=== PATIENT | female | born 1945 | race Asian ===

== ENCOUNTER → 2017-05-02 15:11 | Outpatient (CLI) | payer BC ==
[2017-05-02 15:32] LABS: BASOPHILS 0.4 % (0-2); EOSINOPHILS 3.8 % (0-7); HEMATOCRIT 35.4 % (36.0-48.0); MCH 21.3 pg (26.0-34.0); MCHC 31.1 g/dL (31.0-37.0); MCV 68.6 fL (80.0-100.0); MEAN PLATELET VOLUME 11.2 fL (7.4-10.4); MONOCYTES 7.3 % (2-11); NEUTROPHILS 57.5 % (40-80); PLATELET COUNT 205 10x3/uL (130-400); RBC 5.16 10x6/uL (4.00-5.40); RDW 14.4 % (11.5-14.5); WBC 4.8 10x3/uL (4.8-10.8)
[2017-05-02 15:35] LABS: APPEARANCE CLEAR (CLEAR); BILIRUBIN NEGATIVE (NEGATIVE); COLOR STRAW (YELLOW); GLUCOSE NEGATIVE (NEGATIVE); KETONE NEGATIVE (NEGATIVE); LEUKOCYTE ESTERASE NEGATIVE (NEGATIVE); NITRITE NEGATIVE (NEGATIVE); PROTEIN NEGATIVE (NEGATIVE); SPECIFIC GRAVITY 1.005 (1.005-1.020); UROBILINOGEN NORMAL (NORMAL)
[2017-05-02 16:02] LABS: ALBUMIN 3.7 g/dL (3.4-5.0); ALKALINE PHOSPHATASE 67 U/L (46-116); ALT (SGPT) 21 U/L (10-68); BILIRUBIN - TOTAL 0.33 mg/dL (0.2-1.3); CALC OSMOLALITY 269 mosm/kg (275-300); CALCIUM 8.6 mg/dL (8.5-10.1); CARBON DIOXIDE 29.5 mmol/L (21.0-32.0); CHLORIDE - SERUM 100 mmol/L (98-107); CHOL - HDL RATIO 3.7 ratio (2.3-4.1); CHOLESTEROL, TOTAL 155 mg/dL (0-200); CREATININE - SERUM 0.6 mg/dL (0.6-1.3); GLUCOSE 91 mg/dL (74-106); HDL CHOLESTEROL 42 mg/dL (32-96); LDL CHOLESTEROL 94 mg/dL (0-100); LDL-HDL RATIO 2.2 ratio (1.5-3.5); PROTEIN - SERUM 7.2 g/dL (6.4-8.2); SODIUM 136 mmol/L (136-145); THYROID STIMULATING HORMONE 2.92 uIU/mL (0.36-3.74); TRIGLYCERIDE 98 mg/dL (30-200); UREA NITROGEN 7 mg/dL (7-18); eGFR NON AFRICAN AMERICAN > 90 mL/min (90-120)
[2017-05-02 16:19] LABS: HEMOGLOBIN A1C 6.8 % (4.8-6.0)
== END | disposition home or self-care (01) ==
LOC: D.LABREF 15:11
PROVIDERS: Family Medicine
DX: Z00.00 Encounter for general adult medical examination without abnormal findings (principal); E11.9 Type 2 diabetes mellitus without complications

== ENCOUNTER → 2018-04-11 11:33 | Outpatient (CLI) | payer MEDICARE, BC ==
[2018-04-11 12:25] LABS: BASOPHILS 0.7 % (0-2); EOSINOPHILS 2.2 % (0-7); HEMATOCRIT 36.7 % (36.0-48.0); HEMOGLOBIN 11.7 g/dL (12-16); LYMPHOCYTES 28.2 % (15-50); MCH 21.1 pg (26.0-34.0); MCHC 31.9 g/dL (31.0-37.0); MCV 66.2 fL (80.0-100.0); MEAN PLATELET VOLUME 11.2 fL (7.4-10.4); MONOCYTES 5.2 % (2-11); NEUTROPHILS 63.7 % (40-80); PLATELET COUNT 229 10x3/uL (130-400); RBC 5.54 10x6/uL (4.00-5.40)
[2018-04-11 12:35] LABS: APPEARANCE CLEAR (CLEAR); COLOR YELLOW (YELLOW); GLUCOSE NEGATIVE (NEGATIVE); KETONE NEGATIVE (NEGATIVE); NITRITE NEGATIVE (NEGATIVE); PROTEIN NEGATIVE (NEGATIVE); UROBILINOGEN NORMAL (NORMAL)
[2018-04-11 12:36] LABS: BACTERIA FEW /hpf (NONE SEEN); BILIRUBIN NEGATIVE (NEGATIVE); EPITHELIAL CELLS 0-5 /hpf (0-5); MUCUS <1+ /lpf (NONE SEEN); WHITE CELLS - URINE 0-5 /hpf (0-5)
[2018-04-11 12:53] LABS: ALKALINE PHOSPHATASE 54 U/L (46-116); ALT (SGPT) 22 U/L (10-68); CALC OSMOLALITY 277 mosm/kg (275-300); CALCIUM 9.2 mg/dL (8.5-10.1); CARBON DIOXIDE 30.6 mmol/L (21.0-32.0); CHLORIDE - SERUM 101 mmol/L (98-107); CHOL - HDL RATIO 3.8 ratio (2.3-4.1); CHOLESTEROL, TOTAL 185 mg/dL (0-200); CREATININE - SERUM 0.9 mg/dL (0.6-1.3); GLUCOSE 102 mg/dL (74-106); HDL CHOLESTEROL 49 mg/dL (32-96); LDL CHOLESTEROL 123 mg/dL (0-100); LDL-HDL RATIO 2.5 ratio (1.5-3.5); POTASSIUM - SERUM 4.1 mmol/L (3.5-5.1); PROTEIN - SERUM 7.9 g/dL (6.4-8.2); SODIUM 139 mmol/L (136-145); THYROID STIMULATING HORMONE 6.42 uIU/mL (0.36-3.74); TRIGLYCERIDE 65 mg/dL (30-200); UREA NITROGEN 13 mg/dL (7-18); eGFR NON AFRICAN AMERICAN 65 mL/min (90-120)
[2018-04-11 13:05] LABS: C-REACTIVE PROTEIN < 0.2 mg/dL (0.0-0.9)
[2018-04-11 13:39] LABS: ERYTHROCYTE SEDIMENTATION RATE 35 mm/hr (0-30)
[2018-04-12 11:19] LABS: CREATININE - URINE 132.5 mg/dL (Not Estab.); MICROALBUMIN - URINE 5.1 ug/mL (Not Estab.)
== END | disposition home or self-care (01) ==
LOC: D.LABREF 11:33
PROVIDERS: Family Medicine
DX: Z00.00 Encounter for general adult medical examination without abnormal findings (principal); E11.9 Type 2 diabetes mellitus without complications; E55.9 Vitamin D deficiency, unspecified; E78.4 Other hyperlipidemia

== ENCOUNTER → 2018-07-03 11:32 | Outpatient (CLI) | payer MEDICARE, BC ==
[2018-07-03 12:38] LABS: CHOL - HDL RATIO 3.6 ratio (2.3-4.1); THYROID STIMULATING HORMONE 3.15 uIU/mL (0.36-3.74)
[2018-07-03 13:57] LABS: ERYTHROCYTE SEDIMENTATION RATE 16 mm/hr (0-30)
[2018-07-05 08:19] LABS: VITAMIN D 25 HYDROXY 65.1 ng/mL (30.0-100.0)
[2018-07-05 12:21] LABS: C-PEPTIDE 1.7 ng/mL (1.1-4.4)
[2018-07-06 13:20] LABS: GAD-65 AUTOANTIBODY <5.0 U/mL (0.0-5.0)
[2018-07-06 16:19] LABS: ISLET CELLS ANTIPANCREATIC Negative (Neg:<1:1)
[2018-07-08 18:10] LABS: IA2 AUTOANTIBODIES (LABCORP) <1.0 U/mL (())
[2018-07-12 03:11] LABS: INSULIN ANTIBODIES <5.0 uU/mL (())
== END | disposition home or self-care (01) ==
LOC: D.LAB 06-30 10:00
PROVIDERS: Family Medicine
DX: E11.9 Type 2 diabetes mellitus without complications (principal)

== ENCOUNTER → 2019-01-26 11:52 | Outpatient (CLI) | payer MEDICARE, BC ==
[2019-01-26 12:59] LABS: ALBUMIN 4.2 g/dL (3.4-5.0); ALKALINE PHOSPHATASE 78 U/L (46-116); ALT (SGPT) 18 U/L (10-68); BILIRUBIN - TOTAL 0.57 mg/dL (0.2-1.3); CALC OSMOLALITY 268 mosm/kg (275-300); CALCIUM 9.1 mg/dL (8.5-10.1); CARBON DIOXIDE 28.7 mmol/L (21.0-32.0); CHLORIDE - SERUM 95 mmol/L (98-107); CHOL - HDL RATIO 4.1 ratio (2.3-4.1); CHOLESTEROL, TOTAL 200 mg/dL (0-200); CREATININE - SERUM 0.7 mg/dL (0.6-1.3); GLUCOSE 99 mg/dL (74-106); HDL CHOLESTEROL 49 mg/dL (32-96); LDL CHOLESTEROL 134 mg/dL (0-100); LDL-HDL RATIO 2.7 ratio (1.5-3.5); POTASSIUM - SERUM 4.3 mmol/L (3.5-5.1); PROTEIN - SERUM 8.1 g/dL (6.4-8.2); SODIUM 135 mmol/L (136-145); TRIGLYCERIDE 85 mg/dL (30-200); UREA NITROGEN 9 mg/dL (7-18); eGFR NON AFRICAN AMERICAN 87 mL/min (90-120)
== END | disposition home or self-care (01) ==
LOC: D.LAB 11:52
PROVIDERS: ATTEND Family Medicine
DX: E11.9 Type 2 diabetes mellitus without complications (principal); G62.9 Polyneuropathy, unspecified; E78.5 Hyperlipidemia, unspecified

== ENCOUNTER → 2019-02-15 08:52 | Outpatient (CLI) | payer MEDICARE, BC ==
[2019-02-15 11:26] LABS: CALC OSMOLALITY 243 mosm/kg (275-300); CALCIUM 8.4 mg/dL (8.5-10.1); CARBON DIOXIDE 25.7 mmol/L (21.0-32.0); CHLORIDE - SERUM 87 mmol/L (98-107); CREATININE - SERUM 0.6 mg/dL (0.6-1.3); GLUCOSE 97 mg/dL (74-106); POTASSIUM - SERUM 4.8 mmol/L (3.5-5.1); SODIUM 122 mmol/L (136-145); UREA NITROGEN 6 mg/dL (7-18); eGFR NON AFRICAN AMERICAN > 90 mL/min (90-120)
== END | disposition home or self-care (01) ==
LOC: D.LAB 08:52
PROVIDERS: ATTEND Family Medicine
DX: I10 Essential (primary) hypertension (principal); E11.9 Type 2 diabetes mellitus without complications

== ENCOUNTER → 2019-02-26 09:57 | Outpatient (CLI) | payer MEDICARE, BC ==
[2019-02-26 08:07] LABS: CALCIUM 8.6 mg/dL (8.5-10.1); CREATININE - SERUM 0.6 mg/dL (0.6-1.3); GLUCOSE 92 mg/dL (74-106); UREA NITROGEN 5 mg/dL (7-18); eGFR NON AFRICAN AMERICAN > 90 mL/min (90-120)
[2019-02-26 08:26] LABS: CALC OSMOLALITY 268 mosm/kg (275-300); CARBON DIOXIDE 27.7 mmol/L (21.0-32.0); CHLORIDE - SERUM 101 mmol/L (98-107); POTASSIUM - SERUM 4.2 mmol/L (3.5-5.1); SODIUM 136 mmol/L (136-145)
== END ==
LOC: D.LABREF 09:57 → D.LAB 10:15
PROVIDERS: ATTEND Family Medicine
DX: E87.1 Hypo-osmolality and hyponatremia (principal)

== ENCOUNTER → 2019-03-15 08:00 | Outpatient (CLI) | payer MEDICARE, BC ==
[2019-03-15 09:57] LABS: CALC OSMOLALITY 263 mosm/kg (275-300); CALCIUM 9.2 mg/dL (8.5-10.1); CARBON DIOXIDE 28.3 mmol/L (21.0-32.0); CHLORIDE - SERUM 95 mmol/L (98-107); CREATININE - SERUM 0.6 mg/dL (0.6-1.3); GLUCOSE 119 mg/dL (74-106); POTASSIUM - SERUM 4.2 mmol/L (3.5-5.1); SODIUM 132 mmol/L (136-145); UREA NITROGEN 8 mg/dL (7-18); eGFR NON AFRICAN AMERICAN > 90 mL/min (90-120)
== END | disposition home or self-care (01) ==
LOC: D.LAB 08:00
PROVIDERS: ATTEND Family Medicine
DX: E11.9 Type 2 diabetes mellitus without complications (principal); E87.1 Hypo-osmolality and hyponatremia

== ENCOUNTER 2019-07-05 06:19 | Day surgery (SDC) | payer MEDICARE, BC ==
[2019-06-30 11:33] LABS: BASOPHILS 0.7 % (0-2); EOSINOPHILS 7.3 % (0-7); HEMATOCRIT 35.7 % (36.0-48.0); HEMOGLOBIN 11.6 g/dL (12-16); IMMATURE GRANULOCYTES 0.2 % (0-5); MCH 21.1 pg (26.0-34.0); MCHC 32.5 g/dL (31.0-37.0); MEAN PLATELET VOLUME 9.2 fL (7.4-10.4); MONOCYTES 7.9 % (2-11); NEUTROPHILS 57.9 % (40-80); PLATELET COUNT 268 10x3/uL (130-400); RBC 5.49 10x6/uL (4.00-5.40); RDW 14.7 % (11.5-14.5); WBC 5.7 10x3/uL (4.8-10.8)
[2019-06-30 11:38] LABS: CALC OSMOLALITY 271 mosm/kg (275-300); CALCIUM 9.1 mg/dL (8.5-10.1); CARBON DIOXIDE 28.9 mmol/L (21.0-32.0); CHLORIDE - SERUM 100 mmol/L (98-107); CREATININE - SERUM 0.7 mg/dL (0.6-1.3); GLUCOSE 110 mg/dL (74-106); POTASSIUM - SERUM 4.1 mmol/L (3.5-5.1); SODIUM 136 mmol/L (136-145); UREA NITROGEN 10 mg/dL (7-18); eGFR NON AFRICAN AMERICAN 87 mL/min (90-120)
[~2019-07-05] VITALS: Ht 160 cm; Wt 47.6 kg
[~2019-07-05 06:19] MED LIST: BENICAR20 MG PO; GLUCOPHAGE500 MG PO
[2019-07-05 06:20] VITALS: Ht 160 cm; Wt 47.6 kg
--- NOTE | 2019-07-05 10:20 | NUR ---
1015-REC'D FROM RR, DROWSY EASILY AROUSED WITH VERBAL STIMULI. RIGHT ARM IN SLING WITH ICE PACK TO SHOULDER. VSS. DENIES PAIN. CAP REFILL WNL.FINGERS WARM TO TOUCH. CALL LIGHT IN EASY REACH, AT BEDSIDE.
--- NOTE | 2019-07-05 11:43 | NUR ---
1030-ABLE TO URINATE IN BEDPAN WITHOUT DIFFICULTIES. UNABLE TO AMBULATE AT THIS TIME DUE TO DIZZINESS, NO NAUSEA.
--- NOTE | 2019-07-05 12:54 | NUR ---
1215-TOLERATED FULL LIQUID DIET TRAY. HAVING EPISODES OF DIZZINESS, DENIES NAUSEA AT THIS TIME. VSS. WILL CONTINUE TO MONITOR.
--- NOTE | 2019-07-05 12:55 | NUR ---
1230-ASSISTED TO RESTROOM, ABLE TO AMBULATE WITH ASSIST X 1, CONTINUE TO HAVE DIZZINESS. NO NAUSEA OR VOMITTING ABLE TO URINATE WITHOUT DIFFICULTIES. VSS. CONTINUE TO REST FOR DIZZINESS TO SUBSIDE.
--- NOTE | 2019-07-05 13:46 | NUR ---
1315-ASSISTED PT TO SITTING AT BEDSIDE. CONTINUE TO HAVE DIZZINESS WITHOUT NAUSEA OR VOMITTING. ABLE TO DRESS THEN REQUESTED TO LIE BACK DOWN. VSS. DENIES PAIN
--- NOTE | 2019-07-05 16:00 | NUR ---
1415- CONTINUE TO C/O DIZZINESS. NO NAUSEA OR VOMITTING. HAS TOLERATED A FULL LIQUID TRAY. VSS. REQUEST TO BE ABLE TO LIE FOR A FEW MORE HOURS. CALL LIGHT IN EASY REACH. AT BEDSIDE. SLING IN PLACE, FINGERS WARM, CAPILLARY REFILL WNL,DENIES PAIN.
--- NOTE | 2019-07-05 16:01 | NUR ---
1600- STEPPED OUT AND GOT PT SOMETHING ELSE TO EAT. IS ABLE TO SIT UP AND USE CELL PHONE WITHOUT COMPLICATIONS. REPORTS DIZZINESS ISN'T HAS BAD. NO NAUSEA OR VOMITTING. VSS. CAPILLARY REFILL WNL. FINGERS WARM, DRESSING CDI. SLING IN PLACE. HOB ELEVATED APPROXIMATELY 55 DEGREE ANGLE.
--- NOTE | 2019-07-05 16:53 | NUR ---
1640- DISCHARGE CRITERIA MET. REMOVED IV FROM RIGHT ARM WITH CATH INTACT, DISPOSED INTO SHARPS CONTAINER, VSS. REVIEWED DISCHARGE PAPERWORK WITH PT AND SPOUSE, HAD A FOLLOW UP APPOINTMENT AND PAIN PRESCRIPTION PRIOR TO SURGERY. VERBALIZED UNDERSTANDING WITHOUT COMPLAINTS OR CONCERNS, VSS.
== END 2019-07-05 16:40 | disposition home or self-care (01) ==
LOC: D.OPS 06:19 → D.PAN 07:30 → D.OPS 16:40
PROVIDERS: Anesthesiology; ATTEND Orthopaedic Surgery
DX: M65.811 Other synovitis and tenosynovitis, right shoulder (principal); M19.011 Primary osteoarthritis, right shoulder; M75.41 Impingement syndrome of right shoulder; M75.121 Complete rotator cuff tear or rupture of right shoulder, not specified as traumatic; Z01.812 Encounter for preprocedural laboratory examination